=== PATIENT | female | born 1980 | race Caucasian/White ===

== ENCOUNTER 2018-10-27 12:28 | Emergency (ER) | payer SELFPAY ==
[2018-10-27] MEDS ORDERED: HYDROcodone/Acetaminophen 5/325 mg Tablet ONE (12:47)
[2018-10-27] MEDS ORDERED: AMOXicillin 250 MG CAP ONE (12:47)
== END 2018-10-27 12:54 | disposition home or self-care (01) ==
LOC: BURERS 12:28
DX: K02.9 Dental caries, unspecified (principal); F41.9 Anxiety disorder, unspecified; F17.210 Nicotine dependence, cigarettes, uncomplicated
CPT/HCPCS: 99282